=== PATIENT | female | born 1980 | race Caucasian/White ===

== ENCOUNTER 2016-12-15 19:45 | Emergency (ER) | payer MEDICAID ==
[2016-12-15] MEDS ORDERED: KETOROLAC 30 MG/ML VIAL IVP ONE (20:27)
[2016-12-15] MEDS ORDERED: DIPHENHYDRAMINE HCL IV 50 MG/ML VIAL IVP ONE ×2 (20:27→21:11)
[2016-12-15] MEDS ORDERED: METOCLOPRAMIDE HCL 10 MG/2 ML VIAL IVP ONE (20:27)
[2016-12-15] MEDS ORDERED: 0.9 % SODIUM CHLORIDE 1,000 ML BAG IV ONE (20:27)
--- NOTE | 2016-12-15 20:30 | Emergency Department Record ---
History of Present Illness - General Chief Complaint: Headache Migraine Stated Complaint: MIGRAINE Time Seen by Provider: 12/15/16 20:22 Source: Patient Mode of Arrival: Ambulatory Limitations: No limitations - History of Present Illness Initial Comments: The patient is here due to the onset of a headache this morning. She states the pain is behind the eyes and it is a throbbing pain. The pain was present when she woke up and then gradually worsened and she has had some nausea and one episode of vomiting with it. There is no reported visual changes, fever, chills , neck pain or arm or leg numbness, weakness, or tingling. She has had similar headaches in the past but not for some time. MD Complaint: Headache Onset/Timin -: Hour(s) Onset Description: Gradual Location: Frontal, Retro-orbital Severity scale (1-10): 10 Quality: Throbbing, Similar to previous headaches Consistency: Constant, Getting worse Improves With: Nothing Worsens With: Light, Movement of head/neck, Noise Associated Symptoms: Nausea, Photophobia, Sensitivity to sound, Vomiting Treatments Prior to Arrival: Acetaminophen, Ibuprofen - Related Data Allergies Allergy/AdvReac Type Severity Reaction Status Date / Time No Known Drug Allergies Allergy Verified 12/15/16 19:55 Travel Screening - Travel/Exposure Within Last 30 Days Have you traveled within the last 30 days?: No - Travel Symptoms Symptom Screening: None Review of Systems Constitutional: Denies: Chills, Fever Eyes: Denies: Eye discharge ENT: Denies: Congestion Respiratory: Denies: Cough, Dyspnea Past Medical History - SOCIAL HISTORY Smoking Status: Light tobacco smoker (<10/day) - RESPIRATORY Hx Respiratory Disorders: No - CARDIOVASCULAR Hx Cardio Disorders: No - NEURO Hx Neuro Disorders: No - GI Hx GI Disorders: No - Hx Genitourinary Disorders: No - ENDOCRINE Hx Endocrine Disorders: No - MUSCULOSKELETAL Hx Musculoskeletal Disorders: No - PSYCH Hx Psych Problems: Yes Hx Depression: Yes - HEMATOLOGY/ONCOLOGY Hx Hematology/Oncology Disorders: No Family Medical History Any Significant Family History?: Yes Hx Cancer: Mother Physical Exam - General General Appearance: Alert, Oriented x3, Cooperative, No acute distress - Head Head exam: Atraumatic, Normocephalic, Normal inspection - Eye Eye exam: Normal appearance, PERRL, EOMI - ENT Throat exam: Normal inspection. negative: Tonsillar erythema, Tonsillar exudate - Neck Neck exam: Normal inspection, Full ROM. negative: Meningismus (The neck is very supple.), Tenderness - Respiratory Respiratory exam: Normal lung sounds bilaterally. negative: Respiratory distress - Cardiovascular Cardiovascular Exam: Regular rate, Normal rhythm, Normal heart sounds - GI/Abdominal GI/Abdominal exam: Soft, Normal bowel sounds. negative: Tenderness - Extremities Extremities exam: Normal inspection, Full ROM, Normal capillary refill. negative: Tenderness - Neurological Neurological exam: Alert, Normal gait, Oriented X3, Other (Neg Drift and Rhomberg.). negative: Abnormal gait, Altered, Motor sensory deficit Course Vital Signs 12/15/16 12/15/16 19:55 19:59 Temperature 98.6 F Pulse Rate 84 Pulse Rate [ 81 Pulse Ox Probe] Respiratory 18 20 Rate Blood Pressure 111/73 Blood Pressure 111/73 [Left Arm] Pulse Ox 100 100 - Reevaluation(s) Reevaluation #1: The patient is feeling better. She is resting comfortably. 12/15/16 20:57 Reevaluation #2: The patient is doing much better at this time and her head pain has resolved 100 %. I did explain to her that the pain clinically appears to be a vascular migraine MCCLURE but since they are not overly common for her I did recommend a Head CT for further evaluation. The patient is refusing the test and would like to just go home. She states her pain has resolved 100% and because of that she does not feel she needs the test. I explained to her I would be ordering the test to see if she could have a leaking aneurysm which could be the cause of the MCCLURE. She understands my reasoning but is still refusing. I then explained to her that if she does have a leaking aneurysm and we do not catch it early it could lead to a stroke, significant disability and even . The patient understands the risks and is still refusing the testing. 12/15/16 21:19 Medical Decision Making - Lab Data Result diagrams: 12/15/16 20:38 12/15/16 20:38 Disposition Disposition: Discharge Clinical Impression: Headache Qualifiers: Headache type: other headache syndrome Qualified Code(s): G44.89 - Other headache syndrome Disposition: Home, Self-Care Condition: (1) Good Instructions: Acute Headache (ED) Additional Instructions: Please use your home pain medicines as needed. Please see your PCP for further evaluation and to have a brain MRI ordered. Return to the ER for any increased pain, fever, vomiting, or confusion. Forms: Patient Portal Access Time of Disposition: 21:23 Quality - Quality Measures Quality Measures: N/A - Blood Pressure Screening View Details: Yes Does Patient Have Any of the Following: No Blood Pressure Classification: Normal BP Reading Systolic Measurement: 111 Diastolic Measurement: 73 Screening for High Blood Pressure: < Normal BP, F/U Not Required > [G8783]
[2016-12-15 20:44] LABS: BASO % 0.2 % (0-6); GRAN % 73.4 % (47-80); HEMATOCRIT 39.6 % (35.0-47.0); HEMOGLOBIN 13.4 gm/dl (11.6-16.0); LYMPH % 18.2 % (16-45); MEAN CELL VOLUME 90.8 fl (81-97); MEAN CORPUSCULAR HEMOGLOBIN 30.7 pg (27-33); MEAN CORPUSCULAR HGB CONC 33.8 g/dl (32-36); MEAN PLATELET VOLUME 11.3 fl (7.4-10.4); MONO % 5.2 % (0-9); PLATELET COUNT 243 K/uL (130-400); RED BLOOD COUNT 4.36 M/uL (3.80-5.40); WHITE BLOOD COUNT W/O DIFF 12.2 K/uL (4.2-12.2)
[2016-12-15 20:59] LABS: ALB/GLOB RATIO 1.3 (1.1-1.8); ALBUMIN 4.5 g/dL (4.0-5.0); ALKALINE PHOSPHATASE 76 U/L (35-104); ALT/SGPT 12 U/L (<33); AST/SGOT 22 U/L (10.0-35.0); BLOOD UREA NITROGEN 6 mg/dL (6-20); CREATININE 0.7 mg/dL (0.5-0.9); EST GLOMERULAR FILTRATION RATE > 60 mL/min; GLUCOSE,RANDOM 101 mg/dL (74-109); TOTAL PROTEIN 7.9 g/dL (6.6-8.7)
[2016-12-15 21:00] LABS: C-REACTIVE PROTEIN < 2.0 mg/L (<5.0)
== END 2016-12-15 21:31 | disposition home or self-care (01) ==
LOC: ER 19:45
DX: G44.89 Other headache syndrome (principal); R11.2 Nausea with vomiting, unspecified; H57.13 Ocular pain, bilateral; H53.149 Visual discomfort, unspecified
CPT/HCPCS: 99284 ×2; 96374; 96375; 96361; 85025; 86140; 80053; J1885; J1200; J2765; J7030

== ENCOUNTER 2017-12-10 09:27 | Emergency (ER) | payer MEDICAID ==
[2017-12-10] MEDS ORDERED: 0.9 % SODIUM CHLORIDE 1,000 ML BAG IV ONE ×2 (09:30→10:16)
[2017-12-10] MEDS ORDERED: ONDANSETRON HCL IV 4 MG/2 ML VIAL IV ONE (09:30)
[2017-12-10] MEDS ORDERED: LORAZEPAM 2 MG/ML VIAL IV ONE (09:36)
--- NOTE | 2017-12-10 09:36 | Emergency Department Record ---
History of Present Illness - General Stated complaint: VOMITING,DIARRHEA Time Seen by Provider: 12/10/17 09:29 Source: Patient, Family - History of Present Illness Initial comments: The patient began vomiting around 12 midnight last night and has vomited/dry heaved TNTC times. Diarrhea started around 8 a.m. this morning, less than 5 times. No blood was in either emesis or diarrhea. She has chills but no fevers. She is sweaty and "hyperentillating" per . She smokes marijuana that they grow on their own. 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 She has no surgical history of her abdomen. MD complaint: Diarrhea, Nausea, Vomiting - Related Data Allergies Allergy/AdvReac Type Severity Reaction Status Date / Time No Known Drug Allergies Allergy Verified 12/10/17 09:53 Review of Systems Reviewed: No additional complaints except as noted below Constitutional: Reports: As per HPI. Denies: Chills, Fever, Malaise, Night sweats, Weakness, Weight change Eyes: Reports: As per HPI. Denies: Eye discharge, Eye pain, Photophobia, Vision change ENT: Reports: As per HPI. Denies: Congestion, Dental pain, Ear pain, Epistaxis , Hearing loss, Throat pain Respiratory: Reports: As per HPI. Denies: Cough, Dyspnea, Hemoptysis, Stridor, Wheezes Cardiovascular: Reports: As per HPI. Denies: Arrhythmia, Chest pain, Dyspnea on exertion, Edema, Murmurs, Orthopnea, Palpitations, Paroxysmal nocturnal dyspnea, Rheumatic Fever, Syncope Endocrine: Reports: As per HPI. Denies: Fatigue, Heat or cold intolerance, Polydipsia, Polyuria Gastrointestinal: Reports: As per HPI. Denies: Abdominal pain, Constipation, Diarrhea, Hematemesis, Hematochezia, Melena, Nausea, Vomiting Genitourinary: Reports: As per HPI. Denies: Abnormal menses, Discharge, Dyspareunia, Dysuria, Frequency, Hematuria, Incontinence, Retention, Urgency Musculoskeletal: Reports: As per HPI. Denies: Arthralgia, Back pain, Gout, Joint swelling, Myalgia, Neck pain Skin: Reports: As per HPI. Denies: Bruising, Change in color, Change in hair/ nails, Lesions, Pruritus, Rash Neurological: Reports: As per HPI. Denies: Abnormal gait, Confusion, Headache, Numbness, Paresthesias, Seizure, Tingling, Tremors, Vertigo, Weakness Psychiatric: Reports: As per HPI. Denies: Anxiety, Auditory hallucinations, Depression, Homicidal thoughts, Suicidal thoughts, Visual hallucinations Hematological/Lymphatic: Reports: As per HPI. Denies: Anemia, Blood Clots, Easy bleeding, Easy bruising, Swollen glands Past Medical History - SOCIAL HISTORY Smoking Status: Light tobacco smoker (<10/day) - RESPIRATORY Hx Respiratory Disorders: No - CARDIOVASCULAR Hx Cardio Disorders: No - NEURO Hx Neuro Disorders: No - GI Hx GI Disorders: No - Hx Genitourinary Disorders: No - ENDOCRINE Hx Endocrine Disorders: No - MUSCULOSKELETAL Hx Musculoskeletal Disorders: No - PSYCH Hx Psych Problems: Yes Hx Depression: Yes - HEMATOLOGY/ONCOLOGY Hx Hematology/Oncology Disorders: No Family Medical History Hx Cancer: Mother Physical Exam - General General Appearance: Alert, Oriented x3, Cooperative, No acute distress, Moderate distress (hyperventillating, eyes closed, anxious), Anxious - Head Head exam: Normal inspection - Eye Eye exam: Normal appearance, PERRL Pupils: Normal accommodation - ENT ENT exam: Normal exam, Mucous membranes dry, Normal external ear exam, Normal orophraynx, TM's normal bilaterally Ear exam: Normal external inspection. negative: External canal tenderness Nasal Exam: Normal inspection. negative: Discharge, Sinus tenderness Mouth exam: Normal external inspection, Tongue normal Teeth exam: Normal inspection. negative: Dental caries Throat exam: Normal inspection. negative: Tonsillar erythema, Tonsillar exudate - Neck Neck exam: Normal inspection, Full ROM. negative: Lymphadenopathy, Meningismus , Tenderness - Respiratory Respiratory exam: Normal lung sounds bilaterally. negative: Respiratory distress - Cardiovascular Cardiovascular Exam: Regular rate, Normal rhythm, Normal heart sounds - GI/Abdominal GI/Abdominal exam: Soft, Normal bowel sounds, Tenderness (diffuse vague tenderness). negative: Distended - Rectal Rectal exam: Deferred - exam: Deferred - Extremities Extremities exam: Normal inspection, Full ROM, Normal capillary refill. negative: Calf tenderness, Pedal edema, Tenderness - Back Back exam: Reports: Normal inspection, Full ROM. Denies: Muscle spasm, Rash noted, Tenderness - Neurological Neurological exam: Alert, CN II-XII intact, Normal gait, Oriented X3, Reflexes normal. negative: Motor sensory deficit - Psychiatric Psychiatric exam: Anxious, Normal mood - Skin Skin exam: Dry, Intact, Normal color, Warm Course - Reevaluation(s) Reevaluation #1: 12/10/17 10:15 1015: Patient has ceased from vomiting, is no longer thrashing about, but states she still is nauseated. Her abdomen has diffuse generalized tenderness, is soft without distention. CT ordered. Phenergan 12.5 ordered IV. Reevaluation #2: Patient is requesting something for pain. Toradol 30 Iv ordered. Nausea improved. Awaiting CT report. 15.3WBC, 85 neutrophils. 12/10/17 11:12 12/10/17 11:13 Reevaluation #3: Patient was re examined when her CT scan report returned NEGATIVE. Her abdomen exam was soft, tender in epigastrum and RUQ, but otherwise nontender. The pain goes into her back. She remains painful and is requesting something for pain and for her anxiety. 12/10/17 11:48 Reevaluation #4: Spoke with Dr Sharp who states he will accept patient as a direct admit to [facility]. Patient is very anxious. Valium IV ordered. Awaiting transfer. Patient and family member in agreement with plan. 12/10/17 13:40 12/10/17 13:44 Medical Decision Making - Management Options MDM Management: No Additional Work-up Planned - Data Complexity MDM Data: Labs Ordered and/or Reviewed, X-Ray Ordered and/or Reviewed (Abd/ Pelvis CT: No appendicitis; No free air, no free fluid. no calculi or hydronephrosis; NEGATIVE CT per radiologist. US Abdomen: GB is not fully distended, there is NO biliary dilatation, there may be sludge within the GB, but there are no gallstones. Remainder of study is normal. Per radiologist.) - Lab Data Result diagrams: 12/10/17 09:40 12/10/17 09:40 Disposition Disposition: Transfer Clinical Impression: RUQ abdominal pain, Anxiety Disposition: Acute Care Hospital Transfer Decision to Admit: Admit from ER Decision to Admit Date: 12/10/17 Decision to Admit Time: 13:42 Transfer To: [facility] Reason For Transfer: Studies for intractable abdominal pain, GB studies Accepting Physician: Dr. Sharp Time Discussed w/Accepting Physician: 13:42 Condition: (2) Stable Quality - Quality Measures Quality Measures: N/A - Blood Pressure Screening Does Patient Have Any of the Following: No Blood Pressure Classification: Normal BP Reading Systolic Measurement: 89 Diastolic Measurement: 59 Screening for High Blood Pressure: < Normal BP, F/U Not Required > [G8783]
[2017-12-10 09:51] LABS: HEMATOCRIT 42.8 % (35.0-47.0); HEMOGLOBIN 14.5 gm/dl (11.6-16.0); MEAN CELL VOLUME 87.5 fl (81-97); MEAN CORPUSCULAR HEMOGLOBIN 29.7 pg (27-33); MEAN CORPUSCULAR HGB CONC 33.9 g/dl (32-36); MEAN PLATELET VOLUME 11.2 fl (7.4-10.4); PLATELET COUNT 385 K/uL (130-400); RED BLOOD COUNT 4.89 M/uL (3.80-5.40); RED CELL DISTRIBUTION WIDTH 13.4 % (11.5-14.5); WHITE BLOOD COUNT W/O DIFF 15.3 K/uL (4.2-12.2)
[2017-12-10 09:58] LABS: PLATELET ESTIMATE NORMAL (NORMAL)
[2017-12-10 10:05] LABS: BLOOD UREA NITROGEN 8 mg/dL (6-20); CREATININE 0.8 mg/dL (0.5-0.9); EST GLOMERULAR FILTRATION RATE > 60 mL/min
[2017-12-10 10:06] LABS: TOTAL PROTEIN 8.6 g/dL (6.6-8.7)
[2017-12-10 10:08] LABS: GLUCOSE,RANDOM 169 mg/dL (74-109)
[2017-12-10 10:10] LABS: ALT/SGPT 12 U/L (<33); AST/SGOT 12 U/L (10.0-35.0)
[2017-12-10 10:11] LABS: ALB/GLOB RATIO 1.5 (1.1-1.8); ALBUMIN 5.2 g/dL (4.0-5.0); ALKALINE PHOSPHATASE 75 U/L (35-104); LIPASE 39 U/L (13-60)
[2017-12-10] MEDS ORDERED: PROMETHAZINE HCL 12.5 MG in 0.9 % SODIUM CHLORIDE 100ML 100 ML IVPB ONE (10:13)
[2017-12-10 10:32] LABS: SALICYLATE 0.3 mg/dL (2.8-20)
[2017-12-10] MEDS ORDERED: KETOROLAC 30 MG/ML VIAL IVP ONE (11:07)
[2017-12-10 11:29] LABS: URINE APPEARANCE CLEAR; URINE BILIRUBIN NEGATIVE (NEGATIVE); URINE BLOOD NEGATIVE (NEGATIVE); URINE COLOR YELLOW; URINE GLUCOSE (UA) NEGATIVE (NEGATIVE); URINE KETONE NEGATIVE (NEGATIVE); URINE LEUKOCYTE ESTERASE NEGATIVE (NEGATIVE); URINE NITRITE NEGATIVE (NEGATIVE); URINE UROBILINOGEN 0.2 E.U./dL (0.20 - 1.00)
[2017-12-10 11:35] LABS: AMPHETAMINE SCREEN URINE NOT DETECTED; BARBITURATE SCREEN URINE NOT DETECTED; BENZODIAZEPINE SCREEN URINE DETECTED; COCAINE SCREEN URINE NOT DETECTED; METHADONE SCREEN URINE NOT DETECTED; METHAMPHETAMINE SCREEN NOT DETECTED; OPIATE SCREEN URINE DETECTED; OXYCODONE SCREEN URINE NOT DETECTED; PHENCYCLIDINE SCREEN URINE NOT DETECTED; PROPOXYPHENE SCREEN URINE NOT DETECTED; THC SCREEN URINE DETECTED; TRICYCLIC ANTIDEPRESSANT SCRN NOT DETECTED
[2017-12-10] MEDS ORDERED: FENTANYL PF 100MCG/2ML VIAL IVP ONE (11:53)
[2017-12-10] MEDS ORDERED: DIPHENHYDRAMINE HCL 50 MG/ML VIAL IVP ONE (11:54)
[2017-12-10] MEDS ORDERED: DIAZEPAM 5MG/ML **10ML VIAL IVP ONE ×2 (13:38→14:19)
--- NOTE | 2017-12-13 08:39 | CT SCAN REPORT ---
EXAM: CT SCAN ABDOMEN/PELVIS WO CONTRAST HISTORY: VOMITING, DIARRHEA, AND GENERALIZED ABDOMINAL PAIN. TECHNIQUE: CT abdomen and pelvis performed without oral or IV contrast. COMPARISON: CT abdomen and pelvis, 07/06/12. FINDINGS: No calcified gallstones seen within the gallbladder. No intrarenal calculi identified on either side. No hydronephrosis or hydroureter seen on either side as well. As such, it is somewhat difficult to follow the entire coarse of both ureters in their nondilated state throughout the retroperitoneum and pelvis but no definite ureteral calculus seen on either side and no bladder calculus evident. Evaluation of the bowel and viscera are extremely limited without oral or IV contrast. Given this limitation, no definite hepatic, splenic, adrenal, pancreatic, or renal mass identified. No appendicitis identified. Lung bases appear clear. No free intraperitoneal air or free intraperitoneal fluid evident. IMPRESSION: EMERGENCY NONCONTRAST CT OF THE ABDOMEN AND PELVIS APPEARS ESSENTIALLY NEGATIVE. NO DEFINITE URINARY TRACT CALCULI OR HYDRONEPHROSIS EVIDENT. NO APPENDICITIS EVIDENT. NO FREE AIR OR FREE FLUID IS SEEN. JOB NUMBER: [id number] [facility]
--- NOTE | 2017-12-13 09:08 | ULTRASOUND REPORT ---
EXAM: ULTRASOUND ABDOMEN, COMPLETE HISTORY: GENERALIZED ABDOMINAL PAIN WITH VOMITING AND DIARRHEA. TECHNIQUE: Complete real-time ultrasound examination of the abdomen. COMPARISON: No prior abdomen ultrasound with which to compare. FINDINGS: Majority of the pancreas is visualized and appears negative with no pancreatic mass or peripancreatic fluid collection evident. Abdominal aorta appears negative with no aneurysm evident. The IVC was negative as seen. The liver appears essentially negative with no hepatic mass or intrahepatic biliary dilatation seen. The right kidney measures about 10.8 cm in length with no hydronephrosis evident. Gallbladder not fully distended but no gallstones identified as visualized and no pericholecystic fluid collection evident. There may be some mild sludge in the gallbladder however. The left kidney measures about 11.7 cm in length with no hydronephrosis evident. The spleen appears negative. IMPRESSION: 1. GALLBLADDER NOT FULLY DISTENDED. NO DEFINITE GALLSTONES SEEN ALTHOUGH SOME SLUDGE MAY BE PRESENT. 2. REMAINDER OF THE ABDOMEN ULTRASOUND APPEARS ESSENTIALLY NEGATIVE DESCRIBED ABOVE. JOB NUMBER: [id number] [facility]
== END 2017-12-10 15:01 | disposition short-term general hospital (02) ==
LOC: ER 09:27
DX: R10.11 Right upper quadrant pain (principal); R11.2 Nausea with vomiting, unspecified; R19.7 Diarrhea, unspecified; F41.9 Anxiety disorder, unspecified; F17.210 Nicotine dependence, cigarettes, uncomplicated
CPT/HCPCS: 99285 ×2; 96376; 96365; 96375; 96361; 83690; 80053; 81003; 84703; 80305; 85027; 76700; 74176; G0480 ×3; J1885; J2405; J3010; J2060; J3360; 80320; 80329; J1200; J2550; J7030